=== PATIENT | female | born 1965 | race Caucasian/White ===

== ENCOUNTER 2020-02-08 06:06 | Day surgery (SDC) | payer BC ==
[~2020-02-08 06:06] MED LIST: Lactated Ringers 1,000 ML IV SCH; Sodium Chloride 0.9% 10 ML Syringe FLUSH PRN
[2020-02-08] MEDS ORDERED: Propofol 200 MG/20 ML SDV IV ONE (06:07)
[2020-02-08] MEDS ORDERED: Lactated Ringers 1,000 ML IV SCH (06:15)
[2020-02-08] MEDS ORDERED: Sodium Chloride 0.9% 10 ML Syringe FLUSH PRN (06:15)
--- NOTE | 2020-02-08 07:44 | PCM.PN ---
- General Info Date of Service: 02/08/20 - Review of Systems Systems Review Comment:: 54 y/o female here for screening colonoscopy. She denies any recent changes to her health status. She denies any known family history of colon cancer. Her recent H and P is reviewed and no significant changes are noted. I have discussed the proposed colonoscopy with the patient. Risks such as but not limited to bleeding and GI injury reviewed and she agrees to proceed. - Patient Data Vitals - Most Recent: Last Vital Signs Temp 97.8 F 02/08/20 06:45 Pulse 60 02/08/20 06:45 Resp 16 02/08/20 06:45 BP 135/84 02/08/20 06:45 Pulse Ox 100 02/08/20 06:45 Weight - Most Recent: 220 lb 7.396 oz Med Orders - Current: Current Medications Lactated Ringer's (Ringers, Lactated) 1,000 mls @ 125 mls/hr IV ASDIRECTED REJI Last Admin: 02/08/20 07:16 Dose: 125 mls/hr Documented by: Sodium Chloride (Saline Flush) 10 ml FLUSH ASDIRECTED PRN PRN Reason: Keep Vein Open Discontinued Medications Lactated Ringer's (Ringers, Lactated) 1,000 mls @ 125 mls/hr IV ASDIRECTED REJI Sodium Chloride (Saline Flush) 10 ml FLUSH ASDIRECTED PRN PRN Reason: Keep Vein Open Sepsis Event Note - Focused Exam Vital Signs: Vital Signs Temp Pulse Resp BP Pulse Ox 02/08/20 06:45 97.8 F 60 16 135/84 100 - Problem List Review Problem List Initiated/Reviewed/Updated: Yes - My Orders Last 24 Hours: My Active Orders 02/07/20 Dinner Nothing Per Oral Diet [DIET] 02/08/20 06:15 Patient Status [ADT] Routine Patient to Empty Bladder [RC] ASDIRECTED Verify Patient Consent Obtain [RC] ASDIRECTED Lactated Ringers [Ringers, Lactated] 1,000 ml IV ASDIRECTED Sodium Chloride 0.9% [Saline Flush] 10 ml FLUSH ASDIRECTED PRN Peripheral IV Insertion Adult [OM.PC] Routine - Assessment Assessment:: Colon Cancer Screening - Plan Plan:: Colonoscopy
--- NOTE | 2020-02-08 08:16 | PCM.OPNOTE ---
- General Post-Op/Procedure Note Date of Surgery/Procedure: 02/08/20 Operative Procedure(s): Colonoscopy with polypectomy Findings: Multiple small polyps Mild Sigmoid Diverticulosis External Hemorrhoids Pre Op Diagnosis: Colon Cancer Screening Post-Op Diagnosis: Colon Polyps. Sigmoid Diverticulosis. Hemorrhoids Anesthesia Technique: MAC Primary Surgeon: Mikie Vera Pathology: Colon Polyps EBL in mLs: 0 Complications: None Condition: Good
--- NOTE | 2020-02-08 11:43 | OR ---
DATE OF OPERATION: 02/08/2020 SURGEON: Mikie Vera MD PREOPERATIVE DIAGNOSIS: Colon cancer screening. POSTOPERATIVE DIAGNOSES: Colon polyps, sigmoid diverticulosis, and external hemorrhoids. OPERATION PERFORMED: Colonoscopy with polypectomy. INDICATIONS FOR SURGERY: This 54-year-old female presents today for screening colonoscopy. She denies any recent rectal bleeding or changes in bowel pattern. FINDINGS: Small polyps are noted in the left side of the patient's colon. She has a 4 mm polyp in the descending colon 40 cm from the anal verge. There was a cluster of 2 polyps, 3 to 4 mm in size in the sigmoid colon 30 cm from the anal verge. The patient also has a mild degree of diverticulosis in the sigmoid region, which does not appear to be acutely inflamed or otherwise complicated. She has small to moderate-sized external hemorrhoids. PROCEDURE IN DETAIL: The patient was taken to the operating room. She was given intravenous sedation, and with her in the left lateral decubitus position, digital rectal exam was performed showing no rectal masses. The Olympus colonoscope was inserted into the rectum. Retroflexed examination of the rectal canal was performed. The scope was then carefully advanced under direct visualization through the entire length of the colon until the cecum was reached. Cecal acquisition was confirmed by noting the normal internal cecal anatomy including the appendiceal orifice and the ileocecal valve. The ileocecal valve was cannulated and the terminal ileum examined and appeared normal. The scope was then slowly withdrawn, sequentially re-examining the colonic segments. In the descending and sigmoid colons, the above-described polyps were identified. Each of these were removed grossly in their entirety with biopsy forceps and these polyps were retrieved and submitted for pathology. The examination was then completed, and after the entire colon and rectum had been fully examined, the scope was removed and the patient was taken from the operating room in satisfactory condition. ESTIMATED BLOOD LOSS: 0. COMPLICATIONS: None. PROGNOSIS: Good. /[id number] BLADE/CARMEN
== END 2020-02-08 08:53 | disposition home or self-care (01) ==
LOC: FB.SDS 06:06
PROVIDERS: ATTEND Surgery
DX: Z12.11 Encounter for screening for malignant neoplasm of colon (principal); K63.5 Polyp of colon; K57.30 Diverticulosis of large intestine without perforation or abscess without bleeding; K64.4 Residual hemorrhoidal skin tags; I10 Essential (primary) hypertension; M32.9 Systemic lupus erythematosus, unspecified; G56.02 Carpal tunnel syndrome, left upper limb; R56.9 Unspecified convulsions; I83.92 Asymptomatic varicose veins of left lower extremity; Z79.899 Other long term (current) drug therapy; Z88.8 Allergy status to other drugs, medicaments and biological substances; Z87.891 Personal history of nicotine dependence
CPT/HCPCS: 00812-QZ; 88305; J2704; J7120

== ENCOUNTER 2022-07-10 02:45 | Emergency (ER) | payer BC ==
[2022-07-10] MEDS ORDERED: Prochlorperazine 10 MG/2 ML SDV IVPUSH ONE (03:24)
[2022-07-10] MEDS ORDERED: diphenhydrAMINE 50 MG/ML SDV IVPUSH ONE (03:24)
[2022-07-10] MEDS ORDERED: Sodium Chloride 0.9% 500 ML IV ONE (03:24)
[2022-07-10] MEDS: Sodium Chloride 0.9% 10 ML Syringe FLUSH PRN ×3 (03:34→05:24)
[2022-07-10 04:00] LABS: ESTIMATED GFR 53 mL/min (>60)
[2022-07-10] MEDS ORDERED: Dexamethasone 4 MG/ML SDV IVPUSH ONE (04:58)
[2022-07-10] MEDS ORDERED: cefTRIAXone 2 GM Vial IVPUSH ONE (04:59)
== END 2022-07-10 05:36 | disposition home or self-care (01) ==
LOC: FB.ED 02:45
DX: L93.0 Discoid lupus erythematosus (principal); N39.0 Urinary tract infection, site not specified; R31.9 Hematuria, unspecified; I10 Essential (primary) hypertension; Z98.890 Other specified postprocedural states; Z88.1 Allergy status to other antibiotic agents; Z88.8 Allergy status to other drugs, medicaments and biological substances; Z79.899 Other long term (current) drug therapy; Z20.822 Contact with and (suspected) exposure to COVID-19
CPT/HCPCS: 70450; 80053; 81001; 83735; 85025; 85651; 86140; 87086; 87088; 87186; 87635; 96361; 96374; 96375; 99284; J0696; J0780; J1100; J1200; J3490; J7040; U0002